=== PATIENT | female | born 1995 | race Caucasian/White ===

== ENCOUNTER → 2021-11-13 | Outpatient (CLI) | payer MEDICARE, OTHER ==
--- NOTE | 2021-11-14 07:48 | US ---
EXAMINATION TYPE: US pelvic complete DATE OF EXAM: 11/13/2021 COMPARISON: NONE CLINICAL HISTORY: N97.0 ANOVULATION. not avulating TECHNIQUE: Transabdominal (TA). Transabdominal sonographic images of the pelvis were acquired. Date of LMP: 11/06/2021 EXAM MEASUREMENTS: Uterus: 6.8 x 2.9 x 4.2 cm Endometrial Stripe: .7 cm Right Ovary: 3.7 x 2.0 x 1.5 cm Left Ovary: 3.5 x 2.3 x 2.6 cm 1. Uterus: Anteverted wnl 2. Endometrium: wnl 3. Right Ovary: wnl 4. Left Ovary: Follicle seen 1.6 cm. 5. Bilateral Adnexa: wnl 6. Posterior cul-de-sac: wnl IMPRESSION: Left ovarian follicle.
== END | disposition home or self-care (01) ==
LOC: RADUSWWP 15:59
PROVIDERS: ATTEND Obstetrics & Gynecology
DX: N83.02 Follicular cyst of left ovary (principal)
CPT/HCPCS: 76856

== ENCOUNTER → 2022-07-02 | Outpatient (CLI) | payer MEDICARE, OTHER ==
[~2022-07-02] MED LIST: SODIUM CHLORIDE 0.9% 500 ML 500 ML in EMPTY BAG 1 BAG IV PRN
[2022-07-02 14:20] VITALS: BP 154/95; PULSE 97; RESP 16; TEMP 98.1
[2022-07-02 14:29] LABS: Basophils # (A) 0.1 k/uL (0-0.2); Basophils % (A) 1 %; Eosinophils # (A) 0.2 k/uL (0-0.7); Eosinophils % (A) 2 %; HCT 39.7 % (34.0-46.0); HGB 13.1 gm/dL (11.4-16.0); Lymphocytes # (A) 1.8 k/uL (1.0-4.8); Lymphocytes % (A) 22 %; MCH 28.8 pg (25.0-35.0); MCHC 32.9 g/dL (31.0-37.0); MCV 87.6 fL (80.0-100.0); Mean Platelet Volume 9.1; Monocytes # (A) 0.4 k/uL (0-1.0); Monocytes % (A) 5 %; Neutrophils # (A) 5.6 k/uL (1.3-7.7); Neutrophils % (A) 67 %; Platelet Count 307 k/uL (150-450); RBC 4.53 m/uL (3.80-5.40); RDW 13.4 % (11.5-15.5); WBC 8.4 k/uL (3.8-10.6)
[2022-07-02 14:40] LABS: ALT 38 U/L (4-34); AST 30 U/L (14-36); African American GFR (CKD) >90 (>60 ml/min/1.73 sqM); Albumin 4.6 g/dL (3.5-5.0); Alkaline Phosphatase 112 U/L (38-126); Anion Gap 13 mmol/L; Blood Urea Nitrogen 16 mg/dL (7-17); Calcium 9.4 mg/dL (8.4-10.2); Carbon Dioxide 23 mmol/L (22-30); Chloride 102 mmol/L (98-107); Glucose 89 mg/dL (74-99); Non-African American GFR(CKD) >90 (>60 ml/min/1.73 sqM); Potassium 4.1 mmol/L (3.5-5.1); Sodium 138 mmol/L (137-145); Total Bilirubin 0.3 mg/dL (0.2-1.3); Total Protein 7.6 g/dL (6.3-8.2)
[2022-07-02 15:42] LABS: T4, Free (Free Thyroxine) 0.99 ng/dL (0.78-2.19)
== END ==
LOC: PROCWHC3 13:52
PROVIDERS: ATTEND Family Medicine
DX: F41.1 Generalized anxiety disorder (principal); F41.0 Panic disorder [episodic paroxysmal anxiety]; E84.9 Cystic fibrosis, unspecified; Z88.1 Allergy status to other antibiotic agents
CPT/HCPCS: 84439; 80053; 84443; 82607; 82746; 85025; 83036; 36591; J1642

== ENCOUNTER → 2022-07-20 | Outpatient (CLI) | payer MEDICARE, OTHER ==
[2022-07-20 11:21] VITALS: BP 144/89; PULSE 96; RESP 16; TEMP 98
[2022-07-20 12:07] LABS: T4, Free (Free Thyroxine) 1.11 ng/dL (0.78-2.19)
== END | disposition home or self-care (01) ==
LOC: PROCWHC3 11:07
PROVIDERS: ATTEND Family Medicine
DX: E03.3 Postinfectious hypothyroidism (principal)
CPT/HCPCS: 84439; 84481; 84445; 84443; 36591; J1642

== ENCOUNTER → 2022-09-23 | Outpatient (CLI) | payer MEDICARE, OTHER ==
[2022-09-23 14:08] VITALS: BP 147/99; PULSE 97; RESP 16; TEMP 98.2
[2022-09-23 14:23] LABS: Basophils # (A) 0.1 k/uL (0-0.2); Basophils % (A) 1 %; Eosinophils # (A) 0.2 k/uL (0-0.7); Eosinophils % (A) 4 %; HCT 40.2 % (34.0-46.0); Lymphocytes # (A) 1.9 k/uL (1.0-4.8); Lymphocytes % (A) 27 %; MCH 28.2 pg (25.0-35.0); MCHC 32.5 g/dL (31.0-37.0); MCV 86.8 fL (80.0-100.0); Mean Platelet Volume 8.2; Monocytes # (A) 0.3 k/uL (0-1.0); Monocytes % (A) 5 %; Neutrophils # (A) 4.3 k/uL (1.3-7.7); Neutrophils % (A) 62 %; Platelet Count 311 k/uL (150-450); RBC 4.63 m/uL (3.80-5.40); RDW 13.6 % (11.5-15.5); WBC 6.9 k/uL (3.8-10.6)
[2022-09-23 14:34] LABS: ALT 69 U/L (4-34); AST 63 U/L (14-36); African American GFR (CKD) >90 (>60 ml/min/1.73 sqM); Albumin 4.5 g/dL (3.5-5.0); Alkaline Phosphatase 117 U/L (38-126); Anion Gap 7 mmol/L; Blood Urea Nitrogen 18 mg/dL (7-17); Carbon Dioxide 28 mmol/L (22-30); Chloride 104 mmol/L (98-107); Glucose 116 mg/dL (74-99); Non-African American GFR(CKD) >90 (>60 ml/min/1.73 sqM); Sodium 139 mmol/L (137-145); Total Bilirubin 0.4 mg/dL (0.2-1.3); Total Protein 8.2 g/dL (6.3-8.2)
== END ==
LOC: PROCWHC3 13:42
PROVIDERS: ATTEND Internal Medicine Pulmonary Disease
DX: E84.9 Cystic fibrosis, unspecified (principal); Z88.1 Allergy status to other antibiotic agents
CPT/HCPCS: 36591; 80053; 85025

== ENCOUNTER → 2023-08-09 | Outpatient (CLI) | payer MEDICARE, OTHER ==
--- NOTE | 2023-08-10 09:31 | CT ---
EXAMINATION TYPE: CT abdomen pelvis wo con DATE OF EXAM: 08/09/2023 COMPARISON: None HISTORY: Patient presents with lower abdominal pain and Left flank pain- chronic with a history of ki dney stones. CT DLP: 340.2 mGycm Automated exposure control for dose reduction was used. TECHNIQUE: Helical acquisition of images was performed from the lung bases through the pelvis. FINDINGS: LUNG BASES: Bilateral consolidation with basilar bronchiectasis and mucous plugging seen in the right lower lobe. LIVER/GB: Cholelithiasis with no CT evidence of cholecystitis. PANCREAS: Diffuse pancreatic atrophy. SPLEEN: No significant abnormality is seen. ADRENALS: No significant abnormality is seen. KIDNEYS: Bilateral nephrolithiasis. No hydronephrosis. No ureteral calculi. Right kidney: There are punctate 1 mm multiple calculi estimated at approximately 4-5 calcifications. Left kidney: There are approximately 10-12 calcification all measuring less than 5 mm. FREE AIR: No free air is visualized RETROPERITONEAL ADENOPATHY: None visualized REPRODUCTIVE ORGANS: No significant abnormality is seen URINARY BLADDER: No significant abnormality is seen. PELVIC ADENOPATHY: None visualized. OSSEOUS STRUCTURES: No suspicious lesions. BOWEL: No evidence of obstruction. Extensive retained fecal debris correlate for constipation. OTHER: Small fat-containing periumbilical hernia. Prominent soft tissue nodules in the pelvis likely represent ovaries. IMPRESSION: 1. BILATERAL NONOBSTRUCTING NEPHROLITHIASIS. 2. CHOLELITHIASIS. 3. CORRELATE FOR CONSTIPATION.
== END | disposition home or self-care (01) ==
LOC: RADCTMAIN 16:02
PROVIDERS: ATTEND Family Medicine
DX: N20.0 Calculus of kidney (principal); K80.20 Calculus of gallbladder without cholecystitis without obstruction; R10.31 Right lower quadrant pain; R10.32 Left lower quadrant pain; R10.2 Pelvic and perineal pain; Z87.442 Personal history of urinary calculi
CPT/HCPCS: 74176